=== PATIENT | male | born 1960 | race Hispanic/Latino ===

== ENCOUNTER 2018-12-17 07:54 | Inpatient (IN) | payer OTHER ==
[~2018-12-17] VITALS: Ht 172.7 cm; Wt 80.4 kg
[2018-12-17] VITALS (11 sets, daily range): BP systolic 121–136; BP diastolic 61–74
[2018-12-17] MEDS ORDERED: ONDANSETRON HCL 4 MG/2 ML VIAL ONE (08:03)
[2018-12-17] MEDS ORDERED: SODIUM CHLORIDE 0.9% 1000ML 2,000 ML IV ONE (08:04)
[2018-12-17 08:41] LABS: BASOPHILS % (AUTO) 0.5 % (0.0-5.0); LYMPHOCYTES % (AUTO) 27.6 % (21.0-51.0); MEAN CORPUSCULAR HEMOGLOBIN 30.4 pg (27.0-33.0); MEAN CORPUSCULAR HGB CONC 34.6 g/dL (32.0-36.0); MEAN CORPUSCULAR VOLUME 87.7 fL (79-99); MONOCYTES % (AUTO) 15.2 % (3.0-13.0); NEUTROPHILS % (AUTO) 56.7 % (40.0-77.0); PLATELET COUNT (AUTO) 135 K/uL (130-400); RED BLOOD CELL COUNT(AUTO) 2.85 MIL/uL (4.50-6.20); RED CELL DISTRIBUTION WIDTH 14.6 % (11.0-15.5); WHITE BLOOD COUNT (AUTO) 7.4 K/uL (4.8-10.8)
[2018-12-17 08:49] LABS: INR 1.19 (0.85-1.15); PARTIAL THROMBOPLASTIN TIME 34.6 SEC (26.3-35.5); PROTHROMBIN TIME 12.4 SEC (9.6-11.6)
[2018-12-17 09:50] LABS: ALBUMIN 2.7 g/dL (3.5-5.0); BILIRUBIN,DIRECT 0.2 mg/dL (0.0-0.3); BILIRUBIN,TOTAL 0.8 mg/dL (0.2-1.0); CREATININE 1.4 mg/dL (0.5-1.5); TOTAL PROTEIN, SERUM 6.3 g/dL (6.0-8.3)
[2018-12-17 09:56] LABS: POTASSIUM 4.8 mmol/L (3.5-5.1)
[2018-12-17] MEDS ORDERED: SODIUM CHLORIDE 0.9% 1000ML 1,000 ML IV SCH (10:46)
[2018-12-17] MEDS ORDERED: OCTREOTIDE ACETATE 100 MCG/ML AMP ONE ×2 (10:53→11:13)
[2018-12-17] MEDS ORDERED: SODIUM CHLORIDE 0.9% 50 ML IV ONE (10:54)
[2018-12-17] MEDS ORDERED: CEFTRIAXONE SODIUM 1 GM ONE (10:54)
[2018-12-17] MEDS ORDERED: ONDANSETRON HCL 4 MG/2 ML VIAL IV PRN (11:00)
[2018-12-17] MEDS ORDERED: SODIUM CHLORIDE 0.9% 200 ML IV ONE ×3 (11:02→11:15)
[2018-12-17] MEDS ORDERED: OCTREOTIDE ACETATE 200 MCG/ML 5 ML VIAL ONE ×2 (11:05→20:11)
[2018-12-17] MEDS ORDERED: LORAZEPAM 2 MG/ML 1 ML VIAL IVP PRN (11:30)
[2018-12-17] MEDS: THIAMINE HCL 100 MG, FOLIC ACID 1 MG, M.V.I. IV [ADULT] 10 ML in SODIUM CHLORIDE 0.9% 1... IV SCH ×2 (11:30→21:56)
[2018-12-17] MEDS ORDERED: PHARMACY COMMUNICATION MISC PRN (11:30)
[2018-12-17] MEDS ORDERED: CHLORDIAZEPOXIDE HCL 25 MG CAP PO PRN (11:30)
[2018-12-17 11:46] LABS: HEMATOCRIT 19.3 % (42-54)
[2018-12-17] MEDS: PANTOPRAZOLE SODIUM 80 MG in SODIUM CHLORIDE 0.9% 100 ML IV SCH (12:00)
[2018-12-17] MEDS ORDERED: SODIUM CHLORIDE 0.9% 250 ML IV ONE ×4 (13:06→20:52)
[2018-12-17] MEDS ORDERED: ACETAMINOPHEN 650 MG SUPPOSITORY RC ONE (13:18)
[2018-12-17 13:38] LABS: APPEARANCE,URINE CLEAR (CLEAR); BILIRUBIN,URINE NEGATIVE (NEGATIVE); COLOR,URINE YELLOW (YELLOW); GLUCOSE, URINE (UA) NEGATIVE (NEGATIVE); KETONES,URINE NEGATIVE (NEGATIVE); LEUKOCYTE ESTERASE ,URINE NEGATIVE (NEGATIVE); NITRATE,URINE NEGATIVE (NEGATIVE); OCCULT BLOOD,URINE NEGATIVE (NEGATIVE); PH,URINE 5.5 (5.0-8.0); PROTEIN,URINE NEGATIVE (NEGATIVE); UROBILINOGEN,URINE 0.2 mg/dL (0.2-1.0)
[2018-12-17] MEDS ORDERED: KETOROLAC TROMETHAMINE 30MG/ML ONE (14:36)
[2018-12-17] MEDS ORDERED: SODIUM CHLORIDE 0.9% 100 ML IV ONE ×2 (16:19→20:11)
[2018-12-17] MEDS ORDERED: NOREPINEPHRINE 4MG/NS 250ML 250 ML IV SCH (17:15)
[2018-12-17] MEDS ORDERED: NOREPINEPHRINE BITARTRATE 1 MG/1 ML ML IV ONE (17:22)
[2018-12-17] MEDS ORDERED: SODIUM CHLORIDE 0.9% 1000ML 1,000 ML IV ONE (18:36)
[2018-12-17 19:32] LABS: HEMATOCRIT 21.7 % (42-54)
--- NOTE | 2018-12-17 19:40 | NUR ---
REPORT REPORT RECEIVED FROM BILLIE VIVEROS.
[2018-12-17 19:51] LABS: INR 1.15 (0.85-1.15)
--- NOTE | 2018-12-17 21:00 | NUR ---
ADMISSION PATIENT ARRIVED VIA STRETCHER TO ROOM 217. TRANSFERRED TO BED FROM STRETCHER WITH STANDBY ASSIST. PATIENT AWAKE ALERT AND ORIENTED X3. BREATHING REGULAR AND UNLABORED ON NASAL CANNULA. DENIES ACUTE PAIN. DENIES NAUSEA AT THIS TIME. STATES NO EMESIS SINCE AM. ADMISSION DATABASE COMPLETE
[2018-12-17] MEDS: ZOSYN 3.375GM+NS 50ML 50 ML IV SCH (21:53)
[2018-12-17] MEDS ORDERED: OCTREOTIDE ACETATE 500 MCG in SODIUM CHLORIDE 0.9% 97.5 ML IV PRN ×2 (22:15→22:45)
[2018-12-17] MEDS: DEXTROSE 5 % AND 0.9 % NACL 1,000 ML IV SCH (22:49)
[2018-12-18] VITALS (34 sets, daily range): BP systolic 91–126; BP diastolic 40–76
[2018-12-18 00:38] LABS: HEMATOCRIT 25.4 % (42-54)
[2018-12-18] MEDS: PANTOPRAZOLE SODIUM 80 MG in SODIUM CHLORIDE 0.9% 100 ML IV SCH ×3 (02:09→20:36)
[2018-12-18 03:51] LABS: BASOPHILS % (AUTO) 0.6 % (0.0-5.0); LYMPHOCYTES % (AUTO) 24.6 % (21.0-51.0); MEAN CORPUSCULAR HEMOGLOBIN 30.8 pg (27.0-33.0); MEAN CORPUSCULAR HGB CONC 34.5 g/dL (32.0-36.0); MEAN CORPUSCULAR VOLUME 89.1 fL (79-99); MONOCYTES % (AUTO) 15.5 % (3.0-13.0); NEUTROPHILS % (AUTO) 59.3 % (40.0-77.0); NUCLEATED RED BLOOD CELLS 0.1 % (0.0-0.19); PLATELET COUNT (AUTO) 104 K/uL (130-400); RED BLOOD CELL COUNT(AUTO) 2.81 MIL/uL (4.50-6.20); RED CELL DISTRIBUTION WIDTH 14.1 % (11.0-15.5); WHITE BLOOD COUNT (AUTO) 3.8 K/uL (4.8-10.8)
[2018-12-18 04:05] LABS: ALBUMIN 2.2 g/dL (3.5-5.0); BILIRUBIN,DIRECT 0.3 mg/dL (0.0-0.3); BILIRUBIN,TOTAL 0.8 mg/dL (0.2-1.0); CREATININE 1.2 mg/dL (0.5-1.5); POTASSIUM 4.2 mmol/L (3.5-5.1); TOTAL PROTEIN, SERUM 5.4 g/dL (6.0-8.3)
[2018-12-18] MEDS: ACETAMINOPHEN EXTRA STRENGTH 500 MG TABLET PO PRN ×2 (04:15→15:32)
[2018-12-18] MEDS: ZOSYN 3.375GM+NS 50ML 50 ML IV SCH ×3 (05:45→20:33)
[2018-12-18] MEDS: DEXTROSE 5 % AND 0.9 % NACL 1,000 ML IV SCH ×3 (06:22→21:55)
[2018-12-18 08:51] LABS: HEMATOCRIT 25.6 % (42-54)
[2018-12-18] MEDS: CEFTRIAXONE SODIUM 1 GM IVP SCH (11:04)
--- NOTE | 2018-12-18 12:16 | NUR ---
TRANSFERRED TO ENDO VIA BED, AAOX3, UNLABORED RESPIRATIONS NOTED
[2018-12-18] MEDS ORDERED: PROPOFOL 10 MG/ML 20ML VIAL IV ONE (12:37)
[2018-12-18] MEDS: IPRATROPIUM/ALBUTEROL SULFATE 3 ML SOLUTION IH SCH ×3 (13:30→23:18)
--- NOTE | 2018-12-18 13:30 | NUR ---
Smoking assesmentF: Pt states he smokes marijuana on weekends. Addendum: 12/18/18 at 1654 by KERRY HOU RT Amended: Links added.
[2018-12-18] MEDS: THIAMINE HCL 100 MG, FOLIC ACID 1 MG, M.V.I. IV [ADULT] 10 ML in SODIUM CHLORIDE 0.9% 1... IV SCH (13:58)
[2018-12-18 18:43] LABS: HEMATOCRIT 21.9 % (42-54)
--- NOTE | 2018-12-18 20:00 | NUR ---
ASSESSMENT AWAKE. RESTING IN BED. DENIES PAIN. REMAINS ON PROTONIX DRIP. ASSESSMENT COMPLETED SEE FLOW SHEET. Addendum: 12/18/18 at 2022 by RODRÍGUEZ VILLAFUERTE RN RN Amended: Links added.
[2018-12-18] MEDS: OSELTAMIVIR PHOSPHATE 75 MG CAP PO SCH (20:33)
--- NOTE | 2018-12-18 23:20 | NUR ---
TRACK LAYER HEAD CALL TEMP ELEVATED AND C/O COUGH NOT LETTING HIM SLEEP. TRACK LAYER HEAD BEEPED FOR ORDERS.
--- NOTE | 2018-12-18 23:50 | NUR ---
CORPORATE TRAVEL AGENT CALL NNAMDI,CORPORATE TRAVEL AGENT CALLS BACK AND INFORMED OF TEMP AND COUGH AND ORDERS RECEIVED AND CARRIED OUT.
[2018-12-19] VITALS (12 sets, daily range): BP systolic 98–147; BP diastolic 46–75
[2018-12-19] MEDS ORDERED: GUAIFENESIN-DM 200/20 MG 10 ML PO PRN
[2018-12-19] MEDS ORDERED: SODIUM CHLORIDE 3% FOR INHALATION 4 ML/AMP VIAL.NEB IH ONE ×2 (00:12→06:05)
[2018-12-19] MEDS ORDERED: GUAIFENESIN-DM 200/20 MG 10 ML ONE (00:26)
[2018-12-19] MEDS: ACETAMINOPHEN EXTRA STRENGTH 500 MG TABLET PO PRN (00:44)
[2018-12-19] MEDS: ZOSYN 3.375GM+NS 50ML 50 ML IV SCH ×3 (04:10→21:01)
[2018-12-19] MEDS: DEXTROSE 5 % AND 0.9 % NACL 1,000 ML IV SCH (06:13)
[2018-12-19 06:30] LABS: HEMATOCRIT 22.8 % (42-54); MEAN CORPUSCULAR HEMOGLOBIN 30.4 pg (27.0-33.0); MEAN CORPUSCULAR HGB CONC 34.4 g/dL (32.0-36.0); MEAN CORPUSCULAR VOLUME 88.5 fL (79-99); NUCLEATED RED BLOOD CELLS 0.1 % (0.0-0.19); PLATELET COUNT (AUTO) 111 K/uL (130-400); RED BLOOD CELL COUNT(AUTO) 2.58 MIL/uL (4.50-6.20); RED CELL DISTRIBUTION WIDTH 14.8 % (11.0-15.5); WHITE BLOOD COUNT (AUTO) 3.2 K/uL (4.8-10.8)
[2018-12-19 06:38] LABS: POTASSIUM 3.6 mmol/L (3.5-5.1)
[2018-12-19] MEDS: IPRATROPIUM/ALBUTEROL SULFATE 3 ML SOLUTION IH SCH ×4 (07:04→23:29)
[2018-12-19] MEDS: OSELTAMIVIR PHOSPHATE 75 MG CAP PO SCH ×2 (08:39→21:01)
[2018-12-19] MEDS: THIAMINE HCL 100 MG, FOLIC ACID 1 MG, M.V.I. IV [ADULT] 10 ML in SODIUM CHLORIDE 0.9% 1... IV SCH (09:06)
[2018-12-19] MEDS: PANTOPRAZOLE SODIUM 40 MG TABLET.DR PO SCH (09:07)
--- NOTE | 2018-12-19 10:26 | NUR ---
REPORT CALLED TO [facility] ON 3RD FLOOR. PATIENT IN STABLE CONDITION. WILL BE TRANSFERRED WITH ALL BELONGINGS. AWARE. ROOM 327.
[2018-12-19] MEDS: ACETYLCYSTEINE 20% 200MG/ML 4ML VIAL IH SCH ×3 (11:25→23:29)
[2018-12-19] MEDS: CEFTRIAXONE SODIUM 1 GM IVP SCH (11:59)
[2018-12-19] MEDS: PREDNISONE 20 MG TABLET PO SCH (11:59)
--- NOTE | 2018-12-19 12:17 | NUR ---
DCP CM met with pt discussed dc plan. Pt is independent prior to admission, lives at home with spouse. Denies any equipments/services. Pt feels safe to go back home, spouse able to assist with transportation and needs as necessary. Pt is a self pay, [facility] assisting, does not currently see a pcp, given [facility] resources packet. DC plan to home once stable. CM to cont to follow up. Addendum: 12/19/18 at 1218 by TAMICA KING LVN CM Amended: Links added.
[2018-12-19 12:22] LABS: HEMATOCRIT 23.9 % (42-54)
[2018-12-20] VITALS: BP 124/75
[2018-12-20 04:00] VITALS: BP 112/71
[2018-12-20 04:18] LABS: BASOPHILS % (AUTO) 0.2 % (0.0-5.0); HEMATOCRIT 21.8 % (42-54); LYMPHOCYTES % (AUTO) 18.4 % (21.0-51.0); MEAN CORPUSCULAR HEMOGLOBIN 30.1 pg (27.0-33.0); MEAN CORPUSCULAR HGB CONC 34.3 g/dL (32.0-36.0); MEAN CORPUSCULAR VOLUME 87.9 fL (79-99); MONOCYTES % (AUTO) 11.9 % (3.0-13.0); NEUTROPHILS % (AUTO) 69.5 % (40.0-77.0); NUCLEATED RED BLOOD CELLS 0.1 % (0.0-0.19); PLATELET COUNT (AUTO) 113 K/uL (130-400); RED BLOOD CELL COUNT(AUTO) 2.48 MIL/uL (4.50-6.20); RED CELL DISTRIBUTION WIDTH 14.6 % (11.0-15.5); WHITE BLOOD COUNT (AUTO) 2.7 K/uL (4.8-10.8)
[2018-12-20 04:23] LABS: CREATININE 0.9 mg/dL (0.5-1.5); POTASSIUM 3.9 mmol/L (3.5-5.1)
[2018-12-20 04:36] LABS: BAND NEUTROPHILS % (MANUAL) 1 % (0-2); LYMPHOCYTES % (MANUAL) 16 % (22-44); MAN.DIFF COMMENT-IMPRESSION MANUAL DIFFERENTIAL; MONOCYTES % (MANUAL) 6 % (2-9); REACTIVE LYMPHOCYTES 3 % (0-0); SEGMENTED NEUTROPHILS % 74 % (40-70)
[2018-12-20] MEDS: ZOSYN 3.375GM+NS 50ML 50 ML IV SCH ×3 (05:10→21:55)
[2018-12-20] MEDS: ACETYLCYSTEINE 20% 200MG/ML 4ML VIAL IH SCH ×4 (06:31→23:19)
[2018-12-20] MEDS: IPRATROPIUM/ALBUTEROL SULFATE 3 ML SOLUTION IH SCH ×4 (06:31→23:19)
[2018-12-20 08:00] VITALS: BP 109/63
[2018-12-20] MEDS: CEFTRIAXONE SODIUM 1 GM IVP SCH (10:27)
[2018-12-20] MEDS: OSELTAMIVIR PHOSPHATE 75 MG CAP PO SCH ×2 (10:27→21:55)
[2018-12-20] MEDS: PREDNISONE 20 MG TABLET PO SCH (10:27)
[2018-12-20 12:00] VITALS: BP 117/64
[2018-12-20 16:00] VITALS: BP 122/74
[2018-12-20] MEDS: PANTOPRAZOLE SODIUM 40 MG TABLET.DR PO SCH ×3 (16:57→17:00)
[2018-12-20] MEDS ORDERED: EPOETIN ALFA 10,000 UNIT/ML VIAL SQ SCH (17:15)
[2018-12-20] MEDS ORDERED: COMPOUND IV MISC 1 EACH IVSOLN MISC PRN (17:45)
[2018-12-20] MEDS: IRON SUCROSE COMPLEX 100 MG in SODIUM CHLORIDE 0.9% 50 ML IV SCH (18:42)
[2018-12-20 20:00] VITALS: BP 110/64
[2018-12-21] VITALS (7 sets, daily range): BP systolic 107–131; BP diastolic 60–78
[2018-12-21] MEDS: ZOSYN 3.375GM+NS 50ML 50 ML IV SCH ×3 (04:57→20:37)
[2018-12-21 05:50] LABS: BASOPHILS % (AUTO) 0.2 % (0.0-5.0); EOSINOPHILS % (AUTO) 0.1 % (0.0-8.0); HEMATOCRIT 22.7 % (42-54); LYMPHOCYTES % (AUTO) 20.8 % (21.0-51.0); MEAN CORPUSCULAR HEMOGLOBIN 30.7 pg (27.0-33.0); MEAN CORPUSCULAR HGB CONC 35.3 g/dL (32.0-36.0); MEAN CORPUSCULAR VOLUME 87.1 fL (79-99); MONOCYTES % (AUTO) 12.4 % (3.0-13.0); NEUTROPHILS % (AUTO) 66.5 % (40.0-77.0); NUCLEATED RED BLOOD CELLS 0.1 % (0.0-0.19); PLATELET COUNT (AUTO) 157 K/uL (130-400); WHITE BLOOD COUNT (AUTO) 3.4 K/uL (4.8-10.8)
[2018-12-21] MEDS: ACETYLCYSTEINE 20% 200MG/ML 4ML VIAL IH SCH ×4 (06:16→23:19)
[2018-12-21] MEDS: IPRATROPIUM/ALBUTEROL SULFATE 3 ML SOLUTION IH SCH ×4 (06:16→23:19)
[2018-12-21 06:17] LABS: BILIRUBIN,TOTAL 0.6 mg/dL (0.2-1.0); CREATININE 0.8 mg/dL (0.5-1.5); MAGNESIUM 2.2 mg/dL (1.80-2.40); PHOSPHORUS 2.1 mg/dL (2.5-4.9); POTASSIUM 3.4 mmol/L (3.5-5.1); TOTAL PROTEIN, SERUM 5.4 g/dL (6.0-8.3)
[2018-12-21 06:19] LABS: % IRON SATURATION 44.2 % (30-44)
[2018-12-21] MEDS: IRON SUCROSE COMPLEX 100 MG in SODIUM CHLORIDE 0.9% 50 ML IV SCH (09:31)
[2018-12-21] MEDS: OSELTAMIVIR PHOSPHATE 75 MG CAP PO SCH ×2 (09:32→20:38)
[2018-12-21] MEDS: PREDNISONE 20 MG TABLET PO SCH (09:32)
[2018-12-21] MEDS: THIAMINE HCL 100 MG TABLET PO SCH (09:32)
[2018-12-21] MEDS: PANTOPRAZOLE SODIUM 40 MG TABLET.DR PO SCH ×2 (09:32→17:14)
[2018-12-21] MEDS: FOLIC ACID 1 MG TABLET PO SCH (09:32)
[2018-12-21] MEDS: CEFTRIAXONE SODIUM 1 GM IVP SCH (12:40)
[2018-12-21] MEDS ORDERED: POTASSIUM CHLORIDE 10% ELIXIR 20 MEQ/15 ML UDCUP PO PRN (13:45)
[2018-12-21] MEDS ORDERED: POTASSIUM CHLORIDE 20 MEQ ERTAB PO PRN (13:45)
[2018-12-21] MEDS ORDERED: POTASSIUM CHLORIDE 20MEQ/100ML 100 ML IV PRN (13:45)
[2018-12-21] MEDS ORDERED: LIDOCAINE HCL-MPF 1% 2ML VIAL IV PRN (13:45)
[2018-12-22 03:00] VITALS: BP 123/71
[2018-12-22] MEDS: ZOSYN 3.375GM+NS 50ML 50 ML IV SCH ×2 (04:52→12:00)
[2018-12-22 06:26] LABS: MEAN CORPUSCULAR HEMOGLOBIN 30.8 pg (27.0-33.0); MEAN CORPUSCULAR HGB CONC 34.5 g/dL (32.0-36.0); MEAN CORPUSCULAR VOLUME 89.1 fL (79-99); NUCLEATED RED BLOOD CELLS 0.1 % (0.0-0.19); PLATELET COUNT (AUTO) 167 K/uL (130-400); RED BLOOD CELL COUNT(AUTO) 2.47 MIL/uL (4.50-6.20); RED CELL DISTRIBUTION WIDTH 15.1 % (11.0-15.5); WHITE BLOOD COUNT (AUTO) 3.2 K/uL (4.8-10.8)
[2018-12-22] MEDS: IPRATROPIUM/ALBUTEROL SULFATE 3 ML SOLUTION IH SCH ×2 (06:37→12:52)
[2018-12-22] MEDS: ACETYLCYSTEINE 20% 200MG/ML 4ML VIAL IH SCH ×2 (06:40→12:52)
[2018-12-22 06:51] LABS: CREATININE 0.8 mg/dL (0.5-1.5); POTASSIUM 3.7 mmol/L (3.5-5.1)
[2018-12-22 07:00] VITALS: BP 119/78
[2018-12-22] MEDS: FOLIC ACID 1 MG TABLET PO SCH (07:53)
[2018-12-22] MEDS: PANTOPRAZOLE SODIUM 40 MG TABLET.DR PO SCH (07:53)
[2018-12-22] MEDS: PREDNISONE 20 MG TABLET PO SCH (07:54)
[2018-12-22] MEDS: THIAMINE HCL 100 MG TABLET PO SCH (07:54)
[2018-12-22] MEDS: OSELTAMIVIR PHOSPHATE 75 MG CAP PO SCH (07:54)
[2018-12-22] MEDS: IRON SUCROSE COMPLEX 100 MG in SODIUM CHLORIDE 0.9% 50 ML IV SCH (08:01)
[2018-12-22 08:12] LABS: LYMPHOCYTES % (MANUAL) 25 % (22-44); MAN.DIFF COMMENT-IMPRESSION MANUAL DIFFERENTIAL; MONOCYTES % (MANUAL) 6 % (2-9); PLATELET MORPHOLOGY COMMENT ADEQUATE; SEGMENTED NEUTROPHILS % 69 % (40-70)
[2018-12-22 11:00] VITALS: BP 123/85
[2018-12-22] MEDS: CEFTRIAXONE SODIUM 1 GM IVP SCH (11:26)
[2018-12-22] MEDS ORDERED: FERR325T22 PO (11:35)
[2018-12-22] MEDS ORDERED: FOLI1TAB15 PO (11:35)
[2018-12-22] MEDS ORDERED: PANT40TA PO (11:35)
[2018-12-22] MEDS ORDERED: AMOX-426 PO (11:35)
[2018-12-22] MEDS ORDERED: THIA100T91 PO (11:35)
== END 2018-12-22 13:45 | disposition home or self-care (01) | DRG 377 ==
LOC: EDH 07:54 → EDHIP 07:55 → 2CH 19:59 → 3DH 12-19 10:46
PROVIDERS: ADMIT Hospitalist; ATTEND Hospitalist
PROC: 30233N1 Transfusion of Nonautologous Red Blood Cells into Peripheral Vein, Percutaneous Approach (ICD-10-PCS; 2018-12-17)
PROC: 0DB68ZX Excision of Stomach, Via Natural or Artificial Opening Endoscopic, Diagnostic (ICD-10-PCS; principal; 2018-12-18)
DX: K25.4 Chronic or unspecified gastric ulcer with hemorrhage (principal); R57.8 Other shock; J69.0 Pneumonitis due to inhalation of food and vomit; E87.1 Hypo-osmolality and hyponatremia; D61.818 Other pancytopenia; D62 Acute posthemorrhagic anemia; E44.0 Moderate protein-calorie malnutrition; J90 Pleural effusion, not elsewhere classified; J98.11 Atelectasis; K82.4 Cholesterolosis of gallbladder; E88.09 Other disorders of plasma-protein metabolism, not elsewhere classified; R74.8 Abnormal levels of other serum enzymes; K76.9 Liver disease, unspecified; E87.6 Hypokalemia; Z68.26 Body mass index [BMI] 26.0-26.9, adult
CPT/HCPCS: 36415; 36430; 43239; 71045; 71250; 76705; 80048; 80053; 80076; 81003; 82270; 82550; 82948; 83540; 83550; 83605; 83690; 83735; 84100; 84145; 84484; 85014; 85018; 85025; 85027; 85610; 85730; 86701; 86850; 86900; 86901; 86922; 87040; 87071; 87205; 87390; 87486; 87581; 87633; 87798; 87804; 88305; 93005; 94640; 94664; 94667; 94668; 99291; C9113; G0378; J0696; J0885; J1756; J1885; J2354; J2405; J2543; J2704; J3411; J3490; J7030; J7042; J7608; P9016

== ENCOUNTER 2019-04-05 15:49 | Inpatient (IN) | payer OTHER ==
[~2019-04-05] VITALS: Ht 172.7 cm; Wt 77.7 kg
[~2019-04-05 15:49] MED LIST: AMOX-426 PO; FERR325T22 PO; FOLI1TAB15 PO; PANT40TA PO; THIA100T91 PO
[2019-04-05] MEDS ORDERED: SODIUM CHLORIDE 0.9% 1000ML 2,000 ML IV ONE (15:55)
[2019-04-05 16:14] LABS: BASOPHILS % (AUTO) 0.2 % (0.0-5.0); LYMPHOCYTES % (AUTO) 44.9 % (21.0-51.0); MEAN CORPUSCULAR HEMOGLOBIN 27.9 pg (27.0-33.0); MONOCYTES % (AUTO) 8.7 % (3.0-13.0); NEUTROPHILS % (AUTO) 45.2 % (40.0-77.0); PLATELET COUNT (AUTO) 53 K/uL (130-400); RED BLOOD CELL COUNT(AUTO) 2.08 MIL/uL (4.50-6.20); RED CELL DISTRIBUTION WIDTH 17.6 % (11.0-15.5); WHITE BLOOD COUNT (AUTO) 5.7 K/uL (4.8-10.8)
[2019-04-05 16:18] LABS: HEMATOCRIT 18.1 % (42-54)
[2019-04-05 16:24] LABS: CARBON DIOXIDE 18 mmol/L (21-32); CHLORIDE 99 mmol/L (101-111); CREATININE 1.7 mg/dL (0.5-1.5); GLOMERULAR FILTR. RATE CALC 44 mL/min (>60); GLUCOSE,RANDOM 167 mg/dL (70-105); POTASSIUM 5.4 mmol/L (3.5-5.1); SODIUM SERUM 131 mmol/L (136-145); UREA NITROGEN, BLOOD 50 mg/dL (7-18)
[2019-04-05 16:32] LABS: INR 1.42 (0.85-1.15); PROTHROMBIN TIME 14.7 SEC (9.6-11.6)
[2019-04-05] MEDS ORDERED: SODIUM CHLORIDE 0.9% 250 ML IV ONE (16:38)
[2019-04-05 16:39] LABS: ALANINE AMINOTRANSFERASE 24 U/L (12-78); ALBUMIN 2.2 g/dL (3.5-5.0); ASPARTATE AMINOTRANSFERASE 86 U/L (10-37); BILIRUBIN,TOTAL 0.7 mg/dL (0.2-1.0); CREATINE KINASE, TOTAL 32 U/L (21-232); MYOGLOBIN 50 ng/mL (10-92); TOTAL PROTEIN, SERUM 5.5 g/dL (6.0-8.3); TROPONIN I < 0.04 ng/mL (0.00-0.06)
[2019-04-05 16:51] LABS: BAND NEUTROPHILS % (MANUAL) 1 % (0-2); LYMPHOCYTES % (MANUAL) 47 % (22-44); MONOCYTES % (MANUAL) 2 % (2-9); SEGMENTED NEUTROPHILS % 50 % (40-70)
[2019-04-05 16:53] LABS: MAN.DIFF COMMENT-IMPRESSION MANUAL DIFFERENTIAL
[2019-04-05] MEDS ORDERED: SODIUM CHLORIDE 0.9% 100 ML IV ONE ×2 (17:00→17:32)
[2019-04-05] MEDS ORDERED: ONDANSETRON HCL 4 MG/2 ML VIAL ONE (17:13)
[2019-04-05] MEDS ORDERED: PHYTONADIONE 10 MG/1 ML AMP ONE (17:22)
[2019-04-05] MEDS ORDERED: OCTREOTIDE ACETATE 200 MCG/ML 5 ML VIAL ONE (17:32)
[2019-04-05] MEDS ORDERED: ACETAMINOPHEN 325 MG TAB ONE ×2 (18:08→18:54)
[2019-04-05] MEDS ORDERED: ZOSYN 3.375GM+NS 50ML 50 ML IV ONE (18:21)
[2019-04-05] MEDS ORDERED: VANCOMYCIN 1GM+NS 250ML 250 ML IV ONE (18:35)
[2019-04-05] MEDS: SODIUM CHLORIDE 0.9% 1000ML 1,000 ML IV SCH (18:57)
[2019-04-05] MEDS ORDERED: VANCOMYCIN PROTOCOL PER PHARMACY IV PRN (19:00)
[2019-04-05] MEDS ORDERED: ONDANSETRON HCL 4 MG/2 ML VIAL IV PRN (19:00)
[2019-04-05] MEDS ORDERED: ACETAMINOPHEN 325 MG TAB PO PRN ×2 (19:00)
[2019-04-05] MEDS ORDERED: MORPHINE SULFATE 2 MG/ML 1ML SYG IV PRN (19:00)
[2019-04-05] MEDS ORDERED: SODIUM BICARB 50MEQ 50ML VIAL ONE (19:24)
[2019-04-05] MEDS ORDERED: AZITHROMYCIN 500MG+NS 250ML 250 ML IV ONE (19:39)
[2019-04-05 20:17] LABS: APPEARANCE,URINE Cloudy (CLEAR); BILIRUBIN,URINE Negative (NEGATIVE); COLOR,URINE Yellow (YELLOW); GLUCOSE, URINE (UA) Negative (NEGATIVE); KETONES,URINE Negative (NEGATIVE); LEUKOCYTE ESTERASE ,URINE Negative (NEGATIVE); NITRATE,URINE Negative (NEGATIVE); OCCULT BLOOD,URINE Large (NEGATIVE); PROTEIN,URINE Trace mg/dL (NEGATIVE); UROBILINOGEN,URINE 0.2 mg/dL (0.2-1.0)
[2019-04-05] MEDS ORDERED: SUCCINYLCHOLINE 200MG/10ML SYR ONE (20:29)
[2019-04-05] MEDS ORDERED: PHENYLEPHRINE HCL 10 MG/ML 1ML VIAL IV ONE (20:31)
[2019-04-05] MEDS ORDERED: KETAMINE 50MG/ML SYRINGE 50 MG/ML DISP.SYRIN IV ONE (20:31)
[2019-04-05 20:41] LABS: AMORPHOUS SEDIMENT,UR Few /LPF (None Seen); BACTERIA,URINE Moderate /HPF (None Seen); MUCUS,URINE Moderate LPF (None Seen); SQUAMOUS EPITHELIAL CELL,UR 0-2 /HPF (0-2)
[2019-04-05] MEDS ORDERED: NEOSTIGMINE 5MG/5ML SYR IV ONE (20:52)
[2019-04-05] MEDS ORDERED: GLYCOPYRROLATE 1 MG/5 ML SYRINGE ONE (20:52)
[2019-04-05] MEDS ORDERED: ROCURONIUM 10MG/1ML SYR 10 MG/ML ML ONE ×2 (20:52→21:14)
[2019-04-05 20:56] LABS: HEMATOCRIT 14.9 % (42-54)
[2019-04-05] MEDS: ZOSYN 3.375GM+NS 50ML 50 ML IV SCH (21:00)
[2019-04-05] MEDS ORDERED: EPINEPHRINE 1 MG/ML AMPULE ONE (21:05)
[2019-04-05] MEDS ORDERED: PROPOFOL 1000 MG/100 ML 100 ML IV ONE (21:11)
--- NOTE | 2019-04-05 21:30 | NUR ---
Susie CASTREJON,SEAN NOTIFIED PATIENT IN GI LAB TO BE ADMITTED WITH GI BLEED, SBP 50'S IN ER, HGB 5.8 IN ER, 2 UNITS OF PRBC GIVEN IN ER , 3 ORDERED, 2FF P ORDERED NONE GIVEN. PTL 53, EGD SONE BY DR MELLO WITH X 2 BLEEDING ULCERS, WITH EPI INJECTION AND CAUTERIZED. PATIENT WILL BE GOING TO ROOM 210.
[2019-04-05] MEDS ORDERED: SODIUM CHLORIDE 0.9% 500ML 1,000 ML IV ONE (21:47)
[2019-04-05 21:56] VITALS: BP_SYST 100; BP_SYST 102; BP_DIAS 40; BP_DIAS 50
[2019-04-05 22:00] VITALS: BP_SYST 101; BP_SYST 94; BP_DIAS 40; BP_DIAS 50
[2019-04-05 22:15] VITALS: BP_SYST 104; BP_SYST 110; BP_DIAS 43; BP_DIAS 44
--- NOTE | 2019-04-05 22:25 | NUR ---
Placido DUNBAR NP NOTIFIED PATIENT IN ROOM 210 S/P EGD WITH X 2 BLEEDING ULCERS WITH EPI AND CAUTERIZATION. HGB/HCR 08/06- NEW ORDERS INCLUDING TRANSFUSION OF 2 UNITS PRBC, 2 FFP, VENT SETTINGS, ABG.
[2019-04-05 22:30] VITALS: BP_SYST 90; BP_SYST 95; BP_DIAS 37; BP_DIAS 47
[2019-04-05 22:55] LABS: ABG BASE EXCESS -7.9 mmol/L (-2.0-3.0); ABG HCO3 17.5 mmol/L (21.0-28.0); ABG OXYGEN SATURATION 97.5 % (95.0-99.0); ABG PCO2 35 mmHg (35-48)
[2019-04-05 23:00] VITALS: BP_SYST 84; BP_SYST 88; BP_DIAS 36; BP_DIAS 46
[2019-04-05 23:30] VITALS: BP_SYST 84; BP_SYST 94; BP_DIAS 39; BP_DIAS 51
--- NOTE | 2019-04-05 23:30 | NUR ---
NEW ORDER FROM Fara CASTREJON.ASSISTANT PRODUCTION MANAGER TO HOLD CT CHEST TONIGHT PATIENT IS UNSTABLE.
[2019-04-06] VITALS (72 sets, daily range): BP systolic 76–140; BP diastolic 38–77
[2019-04-06] MEDS ORDERED: NOREPINEPHRINE BITARTRATE 1 MG/1 ML ML IV ONE (00:31)
[2019-04-06] MEDS ORDERED: SODIUM CHLORIDE 0.9% 250 ML IV ONE (00:32)
--- NOTE | 2019-04-06 00:40 | NUR ---
Placido DUNBAR.REMOTE MORTGAGE UNDERWRITER NOTIFIED OF ABG RESULTS WITH NEW ORDERS RECEIVED. HOLD BLEEDING SCAN.
[2019-04-06] MEDS ORDERED: DEXTROSE 5%-WATER 1,000 ML IV ONE (00:42)
[2019-04-06] MEDS ORDERED: SODIUM BICARB 50MEQ 50ML VIAL ONE ×4 (00:42→00:43)
[2019-04-06] MEDS: SODIUM BICARB IV SCH ×2 (00:45→08:11)
[2019-04-06] MEDS ORDERED: NOREPINEPHRINE 4MG/NS 250ML 250 ML IV SCH (00:45)
[2019-04-06] MEDS ORDERED: FENTANYL CITRATE PF 0.05 MG/ML 1,000 MCG in SODIUM CHLORIDE 0.9% 100 ML IVPB SCH (00:45)
[2019-04-06] MEDS: SYRING IV SCH ×2 (00:45→08:11)
[2019-04-06] MEDS: DEXTROSE IV SCH ×2 (00:45→08:11)
[2019-04-06] MEDS ORDERED: MIDAZOLAM HCL 50 MG in SODIUM CHLORIDE 0.9% 50 ML IV SCH (00:45)
[2019-04-06] MEDS: NACL IV SCH ×2 (00:45→08:11)
[2019-04-06] MEDS ORDERED: FENTANYL 1000MCG+NS 100ML 100 ML ONE (01:18)
[2019-04-06] MEDS ORDERED: PROPOFOL 1000 MG/100 ML 100 ML IV ONE (01:19)
[2019-04-06] MEDS ORDERED: FUROSEMIDE 10 MG/ML 10ML VIAL ONE (01:26)
[2019-04-06] MEDS ORDERED: SODIUM CHLORIDE 0.9% 100 ML IV ONE (01:26)
[2019-04-06] MEDS: SODIUM CHLORIDE 0.9% 1000ML 1,000 ML IV SCH ×3 (01:29→18:40)
[2019-04-06] MEDS: PANTOPRAZOLE SODIUM 80 MG in SODIUM CHLORIDE 0.9% 100 ML IV SCH ×2 (02:14→15:25)
[2019-04-06] MEDS ORDERED: FERR500P12 MC (02:48)
[2019-04-06] MEDS ORDERED: PANT40VI IV (02:48)
[2019-04-06 04:58] LABS: HEMATOCRIT 21.3 % (42-54); LYMPHOCYTES % (AUTO) 23.4 % (21.0-51.0); MEAN CORPUSCULAR HEMOGLOBIN 28.7 pg (27.0-33.0); MEAN CORPUSCULAR HGB CONC 33.3 g/dL (32.0-36.0); MEAN CORPUSCULAR VOLUME 86.2 fL (79-99); PLATELET COUNT (AUTO) 36 K/uL (130-400); RED BLOOD CELL COUNT(AUTO) 2.47 MIL/uL (4.50-6.20); RED CELL DISTRIBUTION WIDTH 15.6 % (11.0-15.5); WHITE BLOOD COUNT (AUTO) 2.6 K/uL (4.8-10.8)
[2019-04-06 05:16] LABS: ALBUMIN 1.8 g/dL (3.5-5.0); BILIRUBIN,TOTAL 0.9 mg/dL (0.2-1.0); CREATININE 1.1 mg/dL (0.5-1.5); POTASSIUM 3.9 mmol/L (3.5-5.1); TOTAL PROTEIN, SERUM 4.2 g/dL (6.0-8.3)
[2019-04-06] MEDS: ZOSYN 3.375GM+NS 50ML 50 ML IV SCH ×3 (05:31→21:05)
[2019-04-06 05:37] LABS: ABG BASE EXCESS -1.4 mmol/L (-2.0-3.0); ABG HCO3 21.4 mmol/L (21.0-28.0); ABG OXYGEN SATURATION 97.9 % (95.0-99.0); ABG PCO2 29 mmHg (35-48)
[2019-04-06 06:14] LABS: BAND NEUTROPHILS % (MANUAL) 10 % (0-2); LYMPHOCYTES % (MANUAL) 22 % (22-44); MAN.DIFF COMMENT-IMPRESSION MANUAL DIFFERENTIAL; MONOCYTES % (MANUAL) 3 % (2-9); SEGMENTED NEUTROPHILS % 65 % (40-70)
[2019-04-06 06:15] LABS: PLATELET MORPHOLOGY COMMENT MARKED DECREASE
[2019-04-06 07:58] LABS: HEMATOCRIT 21.5 % (42-54)
[2019-04-06] MEDS: FAMOTIDINE/PF 20 MG/2 ML VIAL IV SCH (08:11)
--- NOTE | 2019-04-06 11:22 | NUR ---
DR PRECIADO ORDERED WEANING OFF SEDATION/VENTILLATOR. PT TOLERATING WITHOUT INCIDENT, WAKING UP FOLLOWING COMMANDS, VERSED STOPPED AT 9:30 AM. FENTANYL REDUCED TO 15MCG/HR. DIPRIVAN OFF AT 10:15AM AT 11:AM. PT VENT MOVED TO CPAP MODE ABG WILL BE DRAWN AT 12NOON
[2019-04-06 11:59] LABS: HEMATOCRIT 20.1 % (42-54)
[2019-04-06 13:02] LABS: ABG HCO3 24.5 mmol/L (21.0-28.0); ABG OXYGEN SATURATION 96.5 % (95.0-99.0); ABG PCO2 30 mmHg (35-48)
[2019-04-06] MEDS ORDERED: ACETAMINOPHEN 650 MG SUPPOSITORY RC ONE (13:05)
[2019-04-06] MEDS ORDERED: ACETAMINOPHEN 650 MG SUPPOSITORY RC PRN (13:15)
--- NOTE | 2019-04-06 13:34 | NUR ---
EXTUBATED AAOX3 PT EXTUBATED, ABLE TO FOLLOW COMMANDS, VS STABLE ON 40% AEROSOL MASK. SUPPOSITORY PLACED AND ICE PACKS FOR FEVER 102.5, WILL CONTINUE TO MONITOR
[2019-04-06] MEDS ORDERED: LORAZEPAM 2 MG/ML 1 ML VIAL IVP PRN (14:15)
--- NOTE | 2019-04-06 15:57 | NUR ---
D/C PLAN CM spoke to pt regarding d/c planning. Pt is ind. and lives with spouse. States spouse can assist in care if needed. CM provided community resources packet. Plan to home. CM to f/u. Addendum: 04/06/19 at 1558 by NICOLE OHLLAND CM Amended: Links added.
[2019-04-06 16:22] LABS: HEMATOCRIT 19.6 % (42-54)
[2019-04-06] MEDS ORDERED: SODIUM CHLORIDE 0.9% 500ML 500 ML IV SCH (17:00)
[2019-04-06] MEDS: VANCOMYCIN 1GM+NS 250ML 250 ML IV SCH (17:30)
[2019-04-06 18:19] LABS: INR 1.15 (0.85-1.15)
[2019-04-06 20:52] LABS: ABG BASE EXCESS 1.3 mmol/L (-2.0-3.0); ABG HCO3 24.6 mmol/L (21.0-28.0); ABG OXYGEN SATURATION 96.5 % (95.0-99.0); ABG PCO2 35 mmHg (35-48)
[2019-04-06] MEDS ORDERED: SODIUM CHLORIDE 0.9% 500ML 500 ML IV ONE (23:30)
[2019-04-07] VITALS (27 sets, daily range): BP systolic 91–133; BP diastolic 46–84
[2019-04-07] MEDS: PANTOPRAZOLE SODIUM 80 MG in SODIUM CHLORIDE 0.9% 100 ML IV SCH (02:13)
[2019-04-07 05:08] LABS: HEMATOCRIT 24.8 % (42-54); LYMPHOCYTES % (AUTO) 34.9 % (21.0-51.0); MEAN CORPUSCULAR HEMOGLOBIN 27.9 pg (27.0-33.0); MEAN CORPUSCULAR HGB CONC 32.3 g/dL (32.0-36.0); MEAN CORPUSCULAR VOLUME 86.4 fL (79-99); MONOCYTES % (AUTO) 11.1 % (3.0-13.0); NEUTROPHILS % (AUTO) 52.9 % (40.0-77.0); PLATELET COUNT (AUTO) 49 K/uL (130-400); RED BLOOD CELL COUNT(AUTO) 2.87 MIL/uL (4.50-6.20); RED CELL DISTRIBUTION WIDTH 15.9 % (11.0-15.5); WHITE BLOOD COUNT (AUTO) 1.9 K/uL (4.8-10.8)
[2019-04-07 05:22] LABS: CREATININE 0.9 mg/dL (0.5-1.5); POTASSIUM 3.8 mmol/L (3.5-5.1)
[2019-04-07] MEDS: ZOSYN 3.375GM+NS 50ML 50 ML IV SCH ×3 (06:33→20:40)
[2019-04-07] MEDS: LANSOPRAZOLE 15 MG SOLU TAB PO SCH ×2 (08:48→20:38)
[2019-04-07] MEDS: FAMOTIDINE/PF 20 MG/2 ML VIAL IV SCH (08:48)
[2019-04-07] MEDS: AMOXICILLIN 500 MG CAPSULE PO SCH ×2 (08:49→20:39)
[2019-04-07] MEDS: CLARITHROMYCIN 500 MG TABLET PO SCH ×2 (08:49→20:39)
--- NOTE | 2019-04-07 14:40 | NUR ---
RD Notification Pt admitted for Acute GI Bleed, Acute Hemorrhage. Pt with Peptic ulcers;RD provided Peptic ulcer nutrition education. Pt started on Clear Liquid diet this AM. Recommend 30mL ProMod BID. When medically feasible, Recommend to advance diet as tolerated to GI Soft/[place] Diet. Noted, low serum Ca levels (6.8); Recommend Calcium supplement. Pt LBM 04/06/19. Pt monitored labs: Hgb 8.0, Hct 24.8, Na 148, Cl 115, BUN 20, Ca 6.3, Alb 1.8. RD to continue to monitor. Please notify RD as additional nutrition concerns arise. Thank you. Addendum: 04/07/19 at [address] RD Amended: Links added.
--- NOTE | 2019-04-07 15:00 | NUR ---
REPORT GIVEN TO ANUP FOR PT TO BE TRANSFERRED TO ROOM 226.
--- NOTE | 2019-04-07 15:15 | NUR ---
ARRIVAL TO ROOM 226 PT IS AAOX3 DENIES CP DENIES SOB DENIES NV NO COMPLAINTS, ARRIVED TO ROOM VIA WC. NO VISIBLE SIGNS OF DISTRESS NOTED. CALL LIGHT WITHIN REACH.
[2019-04-07] MEDS: VANCOMYCIN 1GM+NS 250ML 250 ML IV SCH (17:16)
[2019-04-08 00:42] VITALS: BP 118/63
[2019-04-08 04:00] VITALS: BP 116/65
[2019-04-08] MEDS: ZOSYN 3.375GM+NS 50ML 50 ML IV SCH (04:32)
[2019-04-08 05:54] LABS: MAGNESIUM 2.2 mg/dL (1.80-2.40); PHOSPHORUS 1.2 mg/dL (2.5-4.9)
[2019-04-08 07:41] VITALS: BP 111/66
--- NOTE | 2019-04-08 08:00 | NUR ---
ASSESSMENT PT IS AAOX3 DENIES CP DENIES SOB DENIES NV NO COMPLAINTS, SITTING UPRIGHT IN CHAIR, EATING BREAKFAST. AM MEDS GIVEN. FAMILY IS AT BEDSIDE, CALL LIGHT WITHIN REACH.
[2019-04-08] MEDS ORDERED: POTASSIUM PHOS 15 mMOL+NS250ML 250 ML IV NR (08:15)
[2019-04-08] MEDS: LANSOPRAZOLE 15 MG SOLU TAB PO SCH (08:19)
[2019-04-08] MEDS: CLARITHROMYCIN 500 MG TABLET PO SCH (08:19)
[2019-04-08] MEDS: FAMOTIDINE/PF 20 MG/2 ML VIAL IV SCH (08:19)
[2019-04-08] MEDS: AMOXICILLIN 500 MG CAPSULE PO SCH (08:19)
[2019-04-08] MEDS: NEUTRA-PHOS PACKET 1 EACH PO SCH ×2 (09:14→14:05)
[2019-04-08 10:06] LABS: BASOPHILS % (AUTO) 0.4 % (0.0-5.0); EOSINOPHILS % (AUTO) 0.4 % (0.0-8.0); HEMATOCRIT 25.3 % (42-54); LYMPHOCYTES % (AUTO) 38.3 % (21.0-51.0); MEAN CORPUSCULAR HEMOGLOBIN 28.9 pg (27.0-33.0); MEAN CORPUSCULAR HGB CONC 32.4 g/dL (32.0-36.0); MEAN CORPUSCULAR VOLUME 89.1 fL (79-99); NEUTROPHILS % (AUTO) 48.6 % (40.0-77.0); PLATELET COUNT (AUTO) 44 K/uL (130-400); RED BLOOD CELL COUNT(AUTO) 2.84 MIL/uL (4.50-6.20); RED CELL DISTRIBUTION WIDTH 16.7 % (11.0-15.5); WHITE BLOOD COUNT (AUTO) 2.3 K/uL (4.8-10.8)
[2019-04-08 10:12] LABS: CREATININE 0.9 mg/dL (0.5-1.5); POTASSIUM 3.4 mmol/L (3.5-5.1)
[2019-04-08 10:27] LABS: BAND NEUTROPHILS % (MANUAL) 1 % (0-2); LYMPHOCYTES % (MANUAL) 15 % (22-44); MONOCYTES % (MANUAL) 12 % (2-9); REACTIVE LYMPHOCYTES 7 % (0-0); SEGMENTED NEUTROPHILS % 65 % (40-70)
[2019-04-08 10:28] LABS: MAN.DIFF COMMENT-IMPRESSION MANUAL DIFFERENTIAL; PLATELET MORPHOLOGY COMMENT MARKED DECREASE
[2019-04-08] MEDS ORDERED: AMOX500C2 PO (11:25)
[2019-04-08] MEDS ORDERED: CLAR500T PO (11:25)
[2019-04-08] MEDS ORDERED: LANS30CA55 PO (11:25)
[2019-04-08 11:48] VITALS: BP 102/63
[2019-04-08 15:24] VITALS: BP 124/68
--- NOTE | 2019-04-08 15:30 | NUR ---
REPORTED LOW GRADE TEMPS TO MD DR CALHOUN, STILL OK TO DC HOME PER DR CALHOUN. INCENTIVE SPIROMETRY GIVEN TO PATIENT AND INSTRUCTED ON HOW TO USE, RETURN DEMONSTRATED WITH PRESENT.
--- NOTE | 2019-04-08 15:58 | NUR ---
DISCHARGE TO HOME PT AND VERBALIZE DC INSTRUCTIONS UNDERSTANDING. AGREE TO TAKE MEDS ORDERED AGREE TO FOLLOW UP WITH MD ORDERED. ALL QUESTIONS ANSWERED. ALL PIVS REMOVED, CATH TIPS INTACT. TELE PACK REMOVED. ALL BELONGINGS GATHERED.
--- NOTE | 2019-04-08 16:15 | NUR ---
DOWN VIA WC WITH NURSE AIDE TO VEHICLE
== END 2019-04-08 14:20 | disposition home or self-care (01) | DRG 377 ==
LOC: EDH 15:49 → EDHIP 15:50 → 2BH 21:29 → 2DH 04-07 15:10
PROVIDERS: ADMIT Family Medicine; ATTEND Family Medicine
PROC: 30233K1 Transfusion of Nonautologous Frozen Plasma into Peripheral Vein, Percutaneous Approach (ICD-10-PCS; principal; 2019-04-05)
PROC: 30233N1 Transfusion of Nonautologous Red Blood Cells into Peripheral Vein, Percutaneous Approach (ICD-10-PCS; 2019-04-05)
PROC: 30233R1 Transfusion of Nonautologous Platelets into Peripheral Vein, Percutaneous Approach (ICD-10-PCS; 2019-04-05)
PROC: 5A1935Z Respiratory Ventilation, Less than 24 Consecutive Hours (ICD-10-PCS; 2019-04-05)
PROC: 0BH17EZ Insertion of Endotracheal Airway into Trachea, Via Natural or Artificial Opening (ICD-10-PCS; 2019-04-05)
PROC: 3E0G8GC Introduction of Other Therapeutic Substance into Upper GI, Via Natural or Artificial Opening Endoscopic (ICD-10-PCS; 2019-04-05)
DX: K25.4 Chronic or unspecified gastric ulcer with hemorrhage (principal); R57.8 Other shock; D62 Acute posthemorrhagic anemia; D68.9 Coagulation defect, unspecified; N17.9 Acute kidney failure, unspecified; D69.6 Thrombocytopenia, unspecified; K70.30 Alcoholic cirrhosis of liver without ascites; B96.81 Helicobacter pylori [H. pylori] as the cause of diseases classified elsewhere; E11.9 Type 2 diabetes mellitus without complications; E78.5 Hyperlipidemia, unspecified; I10 Essential (primary) hypertension; K21.0 Gastro-esophageal reflux disease with esophagitis; Z87.11 Personal history of peptic ulcer disease; Z83.79 Family history of other diseases of the digestive system
CPT/HCPCS: 36415; 36430; 43255; 71045; 80048; 80053; 81001; 82270; 82435; 82550; 82803; 82947; 83605; 83735; 83874; 84100; 84132; 84145; 84295; 84484; 85014; 85018; 85025; 85060; 85610; 85730; 86850; 86900; 86901; 86922; 86927; 87040; 87088; 87804; 93005; 94002; 94003; 99291; A4357; C9113; G0378; J0171; J0330; J0456; J1940; J2354; J2370; J2405; J2543; J2704; J2710; J3010; J3370; J3430; J3490; J7030; J7040; J7042; J7070; P9016; P9017; P9034